=== PATIENT | male | born 1960 | race Caucasian/White ===

== ENCOUNTER 2016-07-17 18:12 | Emergency (ER) | payer OTHER ==
[~2016-07-17] VITALS: Ht 170.2 cm; Wt 70.8 kg
[~2016-07-17 18:12] MED LIST: ASPI81TA2 PO; ATOR20TA58 PO; AZIT1PAC7 PO; CARV12.52 PO; CARV6.252 PO; CILO100T PO; CLOP75TA PO; FLUT1DIS3 IH; HYDR-79 PO; HYDR-971 PO; IBUP200T77 PO; INSU100C4 SQ; INSU100V8 SQ; IPRA0.2S5 IH; IPRA3AMP23 IH; ISOS30TA17 PO; ISOS30TA4 PO; LANS30CA PO; NITR0.4T SL; PANT20TA3 PO; PROAIR HFA8.5 GM INH; RAMI5CAP PO; SIMV80TA3 PO; TIOT18CA IH; VENTOLIN HFA18 GM IH
[2016-07-17] MEDS ORDERED: GUAIFENESIN DM 600/30MG TAB.ER.12H. PO ONE (21:00)
[2016-07-17 21:15] VITALS: BP 109/62
[2016-07-17] MEDS ORDERED: GUAI-42 PO (21:26)
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
--- NOTE | 2016-07-18 08:38 | RAD ---
PA and lateral chest radiographs 07/17/2016 Clinical history: Cough and chest pain since earlier in the day. PA and lateral digital radiographs the chest were obtained. Comparison study is dated 09/29/2015. The patient is status post median sternotomy. The cardiac silhouette is normal in size. The thoracic aorta is minimally tortuous. No acute pulmonary infiltrate is seen. No pleural effusion or pneumothorax is noted. A 1 cm calcified granuloma is seen involving the right lower lobe, unchanged. Degenerative changes are seen involving the thoracic spine. Impression: No acute abnormality is seen.
[2016-07-18 10:06] LABS: NEGATIVE OBC STREP NEG; POSITIVE OBC STREP POS
== END 2016-07-17 21:40 | disposition home or self-care (01) ==
LOC: ER 18:12
DX: J02.9 Acute pharyngitis, unspecified (principal); I11.0 Hypertensive heart disease with heart failure; I50.9 Heart failure, unspecified; J44.9 Chronic obstructive pulmonary disease, unspecified; E11.9 Type 2 diabetes mellitus without complications; H40.9 Unspecified glaucoma; E78.00 Pure hypercholesterolemia, unspecified; F12.10 Cannabis abuse, uncomplicated; Z95.5 Presence of coronary angioplasty implant and graft; Z88.5 Allergy status to narcotic agent
CPT/HCPCS: 71020; 87070; 87880; 99285-25

== ENCOUNTER 2016-10-30 13:01 | Emergency (ER) | payer OTHER ==
[2016-10-30 13:01] VITALS: BP 142/89
[~2016-10-30 13:01] MED LIST changes: +ASPI-630 PO; -ASPI81TA2 PO; -AZIT1PAC7 PO; +AZIT1PAC9 PO; +GUAI-107 PO; -ISOS30TA17 PO; +ISOS30TA19 PO
[2016-10-30] MEDS ORDERED: IPRATRPIUM/ALBUTEROL 0.5/2.5MG 3 ML NEBU. NEB ONE (14:00)
[2016-10-30] MEDS ORDERED: BENZONATATE 100 MG CAPSULE. PO ONE (14:00)
[2016-10-30] MEDS ORDERED: predniSONE 20 MG TABLET PO ONE (14:00)
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
--- NOTE | 2016-10-30 14:16 | RAD ---
Chest, 2 views, 10/30/2016: History: Cough, congestion Comparison is made to a study from 07/17/2016. There has been a previous median sternotomy. The heart size and pulmonary vascularity are normal. No pulmonary infiltrate is seen. There is a calcified granuloma in the posterior lung base on the right. There is unchanged blunting of the left lateral costophrenic angle compatible with scarring. IMPRESSION: No acute cardiopulmonary abnormality is detected.
[2016-10-30] MEDS ORDERED: ALBU1.25 NEB (14:22)
[2016-10-30] MEDS ORDERED: BENZ100C PO (14:22)
[2016-10-30] MEDS ORDERED: AZIT250T PO (14:22)
[2016-10-30] MEDS ORDERED: PRED50TA PO (14:22)
[2016-10-30] MEDS ORDERED: CHLO1TB. PO (14:23)
== END 2016-10-30 14:28 | disposition home or self-care (01) ==
LOC: ER 13:01
DX: J06.9 Acute upper respiratory infection, unspecified (principal); B97.89 Other viral agents as the cause of diseases classified elsewhere; J20.9 Acute bronchitis, unspecified; F17.200 Nicotine dependence, unspecified, uncomplicated; I11.0 Hypertensive heart disease with heart failure; I50.9 Heart failure, unspecified; J44.9 Chronic obstructive pulmonary disease, unspecified; H40.9 Unspecified glaucoma; E78.00 Pure hypercholesterolemia, unspecified; E11.9 Type 2 diabetes mellitus without complications; F12.10 Cannabis abuse, uncomplicated; Z95.5 Presence of coronary angioplasty implant and graft; Z88.5 Allergy status to narcotic agent
CPT/HCPCS: 71020; 94250; 94640; 99284; J7512; J7620

== ENCOUNTER → 2017-04-01 | Outpatient (CLI) | payer OTHER | END | disposition home or self-care (01) | LOC: US 13:00 | DX: I70.201 Unspecified atherosclerosis of native arteries of extremities, right leg (principal); E11.51 Type 2 diabetes mellitus with diabetic peripheral angiopathy without gangrene | CPT/HCPCS: 93923 ==

== ENCOUNTER 2017-05-11 10:43 | Observation (INO) | payer OTHER ==
[2017-05-11 11:22] LABS: ANION GAP 8 (6-14); BLOOD UREA NITROGEN 11 mg/dL (8-26); CALCIUM 9.3 mg/dL (8.5-10.1); CARBON DIOXIDE 28 mmol/L (21-32); CHLORIDE 100 mmol/L (98-107); CREATININE 0.8 mg/dL (0.7-1.3); GFR 100.4; GLUCOSE 243 mg/dL (70-99); POTASSIUM 4.1 mmol/L (3.5-5.1); SODIUM 136 mmol/L (136-145)
[2017-05-11 11:24] LABS: HEMATOCRIT 46.4 % (39.0-53.0); MEAN CORPUSCULAR HEMOGLOBIN 32 pg (25-35); MEAN CORPUSCULAR HGB CONC 34 g/dL (31-37); MEAN CORPUSCULAR VOLUME 93 fL (79-100); PLATELET COUNT 222 x10^3/uL (140-400); RED BLOOD COUNT 5.01 x10^6/uL (4.30-5.70); RED CELL DISTRIBUTION WIDTH 13.3 % (11.5-14.5); WHITE BLOOD COUNT 8.3 x10^3/uL (4.0-11.0)
[2017-05-11 11:40] LABS: PROTHROMBIN TIME PATIENT 12.8 SEC (11.7-14.0)
[2017-05-11] MEDS ORDERED: LIDOCAINE 2% 20 ML VIAL. ×2 (13:39→15:03)
[2017-05-11] MEDS ORDERED: IODIXANOL 320 MG/ML 100 ML VIAL. (13:39)
[2017-05-11] MEDS ORDERED: fentaNYL PF VIAL 100 MCG/2 ML VIAL (14:18)
[2017-05-11] MEDS ORDERED: MIDAZOLAM HCL/PF 2 MG/2 ML VIAL. (14:19)
[2017-05-11] MEDS ORDERED: HEPARIN for IV BOLUS 10,000 UNIT/10 ML VIAL. (15:03)
[2017-05-11 15:27] LABS: ISTAT ACT 205 sec (92-181)
[2017-05-11] MEDS: LIDOCAINE 2% 20 ML VIAL. IJ (15:50)
[2017-05-11] MEDS: IODIXANOL 320 MG/ML 100 ML VIAL. IART (15:50)
[2017-05-11] MEDS: MIDAZOLAM HCL/PF 2 MG/2 ML VIAL. IV (15:51)
[2017-05-11] MEDS: fentaNYL PF VIAL 100 MCG/2 ML VIAL IV (15:51)
[2017-05-11] MEDS: HEPARIN for IV BOLUS 10,000 UNIT/10 ML VIAL. IV (15:52)
[2017-05-11 16:40] LABS: POC GLUCOSE 183 mg/dL (70-99)
[2017-05-11] MEDS ORDERED: ATROPINE 0.5 MG/5 ML DISP.SYRIN. IV (17:00)
[2017-05-11] MEDS ORDERED: NON FORMULARY ITEM (Albuterol Sulfate (Proair Hfa Inhaler) 2 PUFF) INH (17:00)
[2017-05-11] MEDS ORDERED: LIDOCAINE 2% 100 MG/5 ML SYRINGE. IV (17:00)
[2017-05-11] MEDS ORDERED: ACETAMINOPHEN 325 MG TABLET. PO (17:00)
[2017-05-11] MEDS ORDERED: 0.9 % SODIUM CHLORIDE 10 ML DISP.SYRIN. IV (17:00)
[2017-05-11] MEDS ORDERED: NITROGLYCERIN SUBLINGUAL 0.4 MG BOTTLE OF 25. SL (17:00)
[2017-05-11] MEDS ORDERED: AMIODARONE 150 MG in IV DEXTROSE 5% 100 ML IV (17:00)
[2017-05-11] MEDS ORDERED: fentaNYL PF VIAL 100 MCG/2 ML VIAL IV (17:00)
[2017-05-11] MEDS: ASPIRIN CHEWABLE 81 MG TABLET. PO (17:26)
[2017-05-11] MEDS: PANTOPRAZOLE 40 MG TABLET.DR. PO (17:30)
[2017-05-11] MEDS ORDERED: DEXTROSE 50% 25 GM / 50ML DISP.SYRIN. IV (17:30)
[2017-05-11] MEDS: CARVEDILOL 12.5 MG TABLET. PO (17:37)
[2017-05-11] MEDS: LISINOPRIL 10 MG TABLET PO (17:38)
[2017-05-11] MEDS: ISOSORBIDE MONONITRATE ER 30 MG TAB.ER.24H PO (17:38)
[2017-05-11] MEDS: CLOPIDOGREL BISULFATE 75 MG TABLET PO ×2 (17:38→18:08)
[2017-05-11] MEDS: CILOSTAZOL 50 MG TABLET. PO (17:39)
[2017-05-11] MEDS: INSULIN ASPART 300 UNITS/3 ML INSULN.PEN SQ (17:43)
[2017-05-11] MEDS: HYDROcodone/APAP 10/325 1 TAB TABLET PO (18:09)
[2017-05-11] MEDS: ALBUTEROL SULFATE 2.5 MG/3 ML NEBU. NEB (20:33)
[2017-05-11 21:03] LABS: POC GLUCOSE 217 mg/dL (70-99)
[2017-05-11] MEDS: INSULIN DETEMIR 300 UNITS/3 ML INSULN.PEN. SQ (21:18)
[2017-05-12] MEDS: INSULIN ASPART 300 UNITS/3 ML INSULN.PEN SQ (07:30)
[2017-05-12 09:13] LABS: POC GLUCOSE 118 mg/dL (70-99)
[2017-05-12] MEDS: CLOPIDOGREL BISULFATE 75 MG TABLET PO (09:20)
[2017-05-12] MEDS: ISOSORBIDE MONONITRATE ER 30 MG TAB.ER.24H PO (09:21)
[2017-05-12] MEDS: PANTOPRAZOLE 40 MG TABLET.DR. PO (09:21)
[2017-05-12] MEDS: LISINOPRIL 10 MG TABLET PO (09:22)
[2017-05-12] MEDS: ASPIRIN CHEWABLE 81 MG TABLET. PO (09:22)
[2017-05-12] MEDS: CARVEDILOL 12.5 MG TABLET. PO (09:22)
[2017-05-12] MEDS: CILOSTAZOL 50 MG TABLET. PO (10:42)
[2017-05-12] MEDS ORDERED: ATORVASTATIN CALCIUM 20 MG TABLET PO (21:00)
== END 2017-05-12 11:40 | disposition home or self-care (01) ==
LOC: CCL 10:43 → 2 SOUTH 15:03
DX: I70.213 Atherosclerosis of native arteries of extremities with intermittent claudication, bilateral legs (principal); I25.10 Atherosclerotic heart disease of native coronary artery without angina pectoris; I10 Essential (primary) hypertension; E78.5 Hyperlipidemia, unspecified; Z95.1 Presence of aortocoronary bypass graft; Z95.5 Presence of coronary angioplasty implant and graft
CPT/HCPCS: 36415; 37220; 75630; 80048; 82962; 85027; 85347; 85610; 96372; 96374; 96375; 99152; 99153; 99406; C1725; C1769; C1771; C1892; G0269; G0378; G0379; J1644; J1815; J2250; J3010; J7613

== ENCOUNTER 2018-01-30 20:31 | Emergency (ER) | payer OTHER ==
[~2018-01-30] VITALS: Ht 170.2 cm; Wt 69.4 kg
[~2018-01-30 20:31] MED LIST changes: +ALBU1.25 NEB; +AZIT250T PO; +BENZ100C PO; +CHLO1TB. PO; -GUAI-107 PO; +GUAI-108 PO; +INSU100I13 SQ; +INSU100I17 SQ; +PANT20TA2 PO; +PRED50TA PO; -RAMI5CAP PO; +RAMI5CAP50 PO; -SIMV80TA3 PO; +SIMV80TA7 PO
[2018-01-30] MEDS ORDERED: IV NORMAL SALINE 1000ML BAG 1,000 ML IV ONE (21:00)
[2018-01-30 21:06] LABS: BASO # 0.1 x10^3/uL (0.0-0.2); BASO % 1 % (0-3); EOS % 1 % (0-3); HEMATOCRIT 42.6 % (39.0-53.0); HEMOGLOBIN 14.9 g/dL (13.0-17.5); LYMPH % 13 % (24-48); MEAN CORPUSCULAR HEMOGLOBIN 32 pg (25-35); MEAN CORPUSCULAR HGB CONC 35 g/dL (31-37); MEAN CORPUSCULAR VOLUME 92 fL (79-100); MONO # 0.4 x10^3/uL (0.0-1.1); MONO % 6 % (0-9); NEUT # 5.9 x10^3uL (1.8-7.7); NEUT % 80 % (31-73); PLATELET COUNT 199 x10^3/uL (140-400); RED BLOOD COUNT 4.62 x10^6/uL (4.30-5.70); RED CELL DISTRIBUTION WIDTH 13.3 % (11.5-14.5); WHITE BLOOD COUNT 7.4 x10^3/uL (4.0-11.0)
[2018-01-30 21:18] LABS: CALCIUM 9.1 mg/dL (8.5-10.1); CREATININE 0.8 mg/dL (0.7-1.3); POTASSIUM 3.8 mmol/L (3.5-5.1)
[2018-01-30 21:23] LABS: ALBUMIN 3.6 g/dL (3.4-5.0); ALBUMIN/GLOBULIN RATIO 1.1 (1.0-1.7); TOTAL BILIRUBIN 0.5 mg/dL (0.2-1.0); TOTAL PROTEIN 6.9 g/dL (6.4-8.2)
[2018-01-30 22:00] VITALS: BP 116/64
[2018-01-30 22:02] LABS: BILIRUBIN,URINE NEGATIVE (NEG); CLARITY,URINE CLEAR; COLOR,URINE YELLOW; NITRITE,URINE NEGATIVE (NEG); PROTEIN,URINE NEGATIVE (NEG-TRACE)
[2018-01-30 22:07] LABS: AMPHETAMINE/METHAMPHETAMINE NEG (NEG); BARBITURATES NEG (NEG); BENZODIAZEPINES NEG (NEG); CANNABINOIDS POS (NEG); COCAINE NEG (NEG); METHADONE NEG (NEG); OPIATES POS (NEG); PHENCYCLIDINE NEG (NEG)
[2018-01-30 22:14] LABS: BACTERIA,URINE 0 /HPF (0-FEW); RBC,URINE 0 /HPF (0-2); SQUAMOUS EPITHELIAL CELL,UR OCC /LPF; WBC,URINE OCC /HPF (0-4)
--- NOTE | 2018-01-30 22:20 | RAD ---
Duplex sonography of the testicles and scrotum Clinical indications: Right testicle pain. FINDINGS: Duplex sonography of the scrotum and both testicles was performed including grayscale evaluation and color flow and waveform spectral analysis. The right testicle measures 3.9 cm and 2.7 cm and 2.2 cm. The left testicle measures 3.9 cm and 2.8 cm and 1.8 cm. Both testicles are homogeneous without mass. Symmetric color Doppler flow is seen within the testicles and therefore no testicular torsion or orchitis is evident. The body of the epididymis on the right side is enlarged and mildly hyperemic. This may be seen with epididymitis. Epididymis on the left side is unremarkable. No hydrocele is seen. IMPRESSION: No testicular torsion or mass. Mild right-sided epididymitis. Electronically signed by: Dre Snow MD (01/30/2018 10:17 PM) [facility]
[2018-01-30] MEDS ORDERED: DOXY100C2 PO (22:31)
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
[2018-01-30] MEDS ORDERED: cefTRIAXone IM 1 GM VIAL IM ONE (22:43)
[2018-01-30] MEDS ORDERED: IBUPROFEN 400 MG TABLET. PO ONE (22:45)
[2018-01-31] MEDS ORDERED: cefTRIAXone IV Push 1 GM VIAL. IVP SCH (21:00)
== END 2018-01-30 22:48 | disposition home or self-care (01) ==
LOC: ER 20:31
DX: N45.1 Epididymitis (principal); E78.00 Pure hypercholesterolemia, unspecified; I11.0 Hypertensive heart disease with heart failure; I50.9 Heart failure, unspecified; E11.39 Type 2 diabetes mellitus with other diabetic ophthalmic complication; H40.9 Unspecified glaucoma; H42 Glaucoma in diseases classified elsewhere; Z95.5 Presence of coronary angioplasty implant and graft; Z95.1 Presence of aortocoronary bypass graft; F17.200 Nicotine dependence, unspecified, uncomplicated; Z88.6 Allergy status to analgesic agent
CPT/HCPCS: 36415; 76870; 80053; 80307; 81001; 85025; 87491; 87591; 96365; 99285; J0690; J7030

== ENCOUNTER → 2018-09-23 | Outpatient (CLI) | payer OTHER ==
[~2018-09-23] MED LIST changes: +ALBU2.5V8 INH; +CARV12.511 PO; -CARV12.52 PO; +CARV6.2511 PO; -CARV6.252 PO; +DOXY100C2 PO; +HYDR-3164 PO; -HYDR-79 PO; -HYDR-971 PO; +HYDROCODONE-IB1 EAC3 PO; -PROAIR HFA8.5 GM INH; +SIMV80TA17 PO; -SIMV80TA7 PO
--- NOTE | 2018-09-23 11:12 | CARD ---
MR#: [id number] Date of Study: 09/23/2018 Ordering Physician: MAGDALENA STRANGE, Referring Physician: MAGDALENA STRANGE, Tech: Paulina Arellano [facility] APPROVED REPORT EXAM: Two-dimensional and M-mode echocardiogram with Doppler and color Doppler. Other Information Quality : GoodHR: 78bpm Rhythm : NSR INDICATION CAD Surgery/Intervention CABD DIMENSIONS RVDd3.2 (2.9-3.5cm)Left Atrium(2D)3.1 (1.6-4.0cm) IVSd1.0 (0.7-1.1cm)Aortic Root(2D)3.2 (2.0-3.7cm) LVDd4.9 (3.9-5.9cm)LVOT Diameter2.1 (1.8-2.4cm) PWd0.8 (0.7-1.1cm)LVDs4.0 (2.5-4.0cm) FS (%) 18.9 %SV44.5 ml Aortic Valve AoV Peak Valdemar.113.7cm/sAoV VTI25.1cm AO Peak GR.5.2mmHgLVOT Peak Valdemar.80.7cm/s AO Mean GR.3mmHgAVA (VMAX)2.35cm2 ZACHARY (VTI)2.40cm2 Mitral Valve MV E Tebtsmyi46.3cm/sMV DECEL QGOD908ep MV A Dqrfkuyi84.4cm/sE/A Ratio1.2 Pulmonary Valve PV Peak Owwkkzps47.3cm/s Tricuspid Valve TR P. Ktrnpagy333qm/sRAP XXLJBTTY9mxRd TR Peak Gr.54wvNfVAMX98ruNq LEFT VENTRICLE The left ventricle is normal size. There is normal left ventricular wall thickness. Left ventricle sy stolic function is mildly decreased. The Ejection Fraction is estimated at 45%. Mild basilar septal h ypokinesis. Transmitral Doppler flow pattern is Grade II-pseudonormal filling dynamics. RIGHT VENTRICLE The right ventricle is normal size. There is normal right ventricular wall thickness. The right ventr icular systolic function is normal. ATRIA The left atrium size is normal. The right atrium size is normal. The interatrial septum is intact wit h no evidence for an atrial septal defect or patent foramen ovale as noted on 2-D or Doppler imaging. AORTIC VALVE The aortic valve is normal in structure and function. The aortic valve is trileaflet. Doppler and Col or Flow revealed no significant aortic regurgitation. There is no significant aortic valvular stenosi s. MITRAL VALVE The mitral valve is normal in structure and function. There is no evidence of mitral valve prolapse. There is no mitral valve stenosis. Doppler and Color-flow revealed mild mitral regurgitation. TRICUSPID VALVE The tricuspid valve is normal in structure and function. Doppler and Color Flow revealed trace tricus pid regurgitation. The PA pressure was estimated at 31 mmHg. There is no tricuspid valve prolapse or vegetation. There is no tricuspid valve stenosis. PULMONIC VALVE The pulmonary valve is normal in structure and function. Doppler and Color Flow revealed trace pulmon ic valvular regurgitation. There is no pulmonic valvular stenosis. GREAT VESSELS The aortic root is normal in size. The ascending aorta is normal in size. The IVC is normal in size a nd collapses >50% with inspiration. PERICARDIAL EFFUSION There is no evidence of significant pericardial effusion. Critical Notification Critical Value: No <Conclusion> The left ventricle is normal size. Left ventricle systolic function is mildly decreased. The Ejection Fraction is estimated at 45%. Mild basilar septal hypokinesis. There is no significant aortic valvular stenosis. Doppler and Color Flow revealed no significant aortic regurgitation. Doppler and Color-flow revealed mild mitral regurgitation. Doppler and Color Flow revealed trace tricuspid regurgitation. The PA pressure was estimated at 31 mmHg. Signed by : Caio Liao MD Electronically Approved : 09/23/2018 11:11:40
--- NOTE | 2018-09-23 14:03 | RAD ---
MR#: [id number] Date of Study: 09/23/2018 Ordering Physician: MAGDALENA STRANGE, Referring Physician: MAGDALENA STRANGE, Tech: Kath Rudolph RDMS, RVT, RTR APPROVED REPORT Patient Location: OUT-PATIENT Exam Type: Ankle to Brachial Index Indications PAD Smoker; Diabetic; History of Iliac stents and Left Femoral Stent Pressures/Indices RightABI LeftABI Brachial 140mmHg.88Brachial 143mmHg.81 Ankle(PT) 115mmHgAnkle(PT) 109mmHg Ankle(DP) 126mmHgAnkle(DP) 116mmHg Findings Ankle-brachial indices are as noted above. There is mild abnormality on the right and mild to moderat e abnormality on the left. Overall no high-grade stenosis identified. Critical Notification Critical Value: No <Conclusion> Mild to moderate lower extremity arterial disease based on ABIs. Signed by : Magdalena Strange, Electronically Approved : 09/23/2018 14:03:14
--- NOTE | 2018-09-23 18:40 | RAD ---
MR#: [id number] Date of Study: 09/23/2018 Ordering Physician: MAGDALENA STRANGE, Referring Physician: MAGDALENA STRANGE, Tech: Kath Rudolph, TOMMS, RVT, RTR APPROVED REPORT Patient Location: OUT-PATIENT Indications PAD Smoker; Diabetic; History of Iliac stents and Left Femoral Stent VELOCITY AND DOPPLER WAVEFORM ANALYSIS RIGHT cm/secWaveformSeverity LEFT cm/secWaveform Severity pCFA 114.2BiphasicpCFA 115.7Biphasic Prof Fem Art. 187.2BiphasicProf Fem Art. 112.5Biphasic Fem Art Prox. 150.4BiphasicFem Art Prox. 101.5Biphasic Fem Art Mid. 170.4BiphasicFem Art Mid. 124.7Biphasic Fem Art Dist. 147.2BiphasicFem Art Dist. 84.8Biphasic Pop Art(AK) 63.0MonophasicPop Art(AK) 73.9Biphasic RIVERBOAT CAPTAIN Prox. 20.1MonophasicPTA Prox. 15.0Monophasic RIVERBOAT CAPTAIN Dist. 53.2MonophasicPTA Dist. 25.7Monophasic Per Art Prox. 57.3Per Art Prox. 39.8Monophasic REFUGIO Prox. 40.5MonophasicATA Prox. 35.4Monophasic DPA 27MonophasicDPA 29Monophasic Findings Grayscale images of the bilateral lower extremity arterial vessels reveals diffuse plaque. No focal high-grade stenosis is identified above the knee and a patent left SFA stent is noted. The d istal aspect of the left SFA stent is not well visualized. There is significantly diminished velocities in the below-knee arteries bilaterally, left greater vladimir n the right. Overall mostly monophasic waveforms are noted throughout the lower extremity arterial co urse likely due to significant adventitial calcification and loss of arterial elasticity and also due to likely diffuse moderate to severe disease involving the below-knee vessels. Critical Notification Critical Value: No <Conclusion> 1. No focal high-grade stenosis above the knee, likely diffuse severe disease involving the below-kne e vessels bilaterally Signed by : Magdalena Strange, Electronically Approved : 09/23/2018 18:40:14
== END | disposition home or self-care (01) ==
LOC: US 09:33
PROVIDERS: ATTEND Internal Medicine Cardiovascular Disease
DX: I34.0 Nonrheumatic mitral (valve) insufficiency (principal); I73.9 Peripheral vascular disease, unspecified; I25.10 Atherosclerotic heart disease of native coronary artery without angina pectoris; E11.9 Type 2 diabetes mellitus without complications; F17.200 Nicotine dependence, unspecified, uncomplicated; Z95.818 Presence of other cardiac implants and grafts
CPT/HCPCS: 93306; 93922; 93925

== ENCOUNTER 2019-01-04 14:57 | Emergency (ER) | payer MEDICAID, OTHER ==
[~2019-01-04] VITALS: Ht 170.2 cm; Wt 69.1 kg
[~2019-01-04 14:57] MED LIST changes: -NITR0.4T SL; +NITR0.4T24 SL
[2019-01-04] MEDS ORDERED: IPRATRPIUM/ALBUTEROL 0.5/2.5MG 3 ML NEBU. NEB ONE (15:30)
--- NOTE | 2019-01-04 15:46 | RAD ---
Chest radiograph 01/04/2019 3:23 PM INDICATION: Cough and shortness of breath COMPARISON: 10/30/2016 TECHNIQUE: Frontal and lateral views of the chest are provided. FINDINGS: The cardiomediastinal silhouette is within normal limits. Median sternotomy changes are present. There are no pleural effusions. Pleural thickening suspected at the left lung base, stable. There is no pulmonary vascular congestion. There is no pneumothorax. The lungs are clear. Mild interstitial prominence appears stable. Suspect pulmonary emphysematous changes. No significant osseous abnormality is identified. IMPRESSION: COPD changes without acute cardiopulmonary process. Electronically signed by: Clarissa Edwards MD (01/04/2019 3:43 PM) [facility]
[2019-01-04] MEDS ORDERED: BENZ100C PO (16:01)
[2019-01-04] MEDS ORDERED: AZIT250T PO (16:01)
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
[2019-01-04 16:10] VITALS: BP 159/74
== END 2019-01-04 16:25 | disposition home or self-care (01) ==
LOC: ER 14:57
DX: J44.1 Chronic obstructive pulmonary disease with (acute) exacerbation (principal); I11.0 Hypertensive heart disease with heart failure; I50.9 Heart failure, unspecified; E11.39 Type 2 diabetes mellitus with other diabetic ophthalmic complication; H40.9 Unspecified glaucoma; E78.00 Pure hypercholesterolemia, unspecified; F17.200 Nicotine dependence, unspecified, uncomplicated; Z95.1 Presence of aortocoronary bypass graft; Z95.5 Presence of coronary angioplasty implant and graft; Z72.0 Tobacco use; Z71.6 Tobacco abuse counseling; Z88.6 Allergy status to analgesic agent
CPT/HCPCS: 71046; 94640; 99284; J7620

== ENCOUNTER 2019-01-28 16:52 | Emergency (ER) | payer MEDICAID ==
[~2019-01-28] VITALS: Ht 170.2 cm; Wt 68.9 kg
[2019-01-28 17:00] VITALS: BP 201/91
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
[2019-01-28] MEDS ORDERED: DIPHTH,PERTUSS(ACELL),TET TOX 0.5 ML DISP.SYRIN. VAX IM ONE (17:30)
[2019-01-28] MEDS ORDERED: ONDANSETRON ODT 4 MG TAB.RAPDIS. PO ONE (17:45)
[2019-01-28] MEDS ORDERED: ONDANSETRON ODT 4 MG TAB.RAPDIS. ONE (17:45)
[2019-01-28] MEDS ORDERED: HYDROcodone/APAP 5/325MG 1 TAB TABLET PO ONE (17:45)
[2019-01-28] MEDS ORDERED: HYDROcodone/APAP 5/325MG 1 TAB TABLET ONE (17:45)
--- NOTE | 2019-01-28 17:56 | RAD ---
CT head without contrast: Reason for examination: Fell with facial contusion. Axial images were obtained through the brain. No contrast was administered. Ventricular systems are symmetric and not abnormally dilated. No midline shift is seen. There is no evidence of intracranial hemorrhage, infarct, mass or edema. No abnormalities are seen at the orbits. The paranasal sinuses are clear. No acute abnormality seen in the skull. IMPRESSION: No acute intracranial abnormality evident. CT maxillofacial without contrast: Helical images were obtained through the maxillofacial structures with no contrast administered. Reconstruction was performed in sagittal and coronal planes. There appear to be nasal bone fractures with mild angulation. The hoskins of the orbits and paranasal sinuses are intact. The zygomatic arches are intact. The mandible is intact. Temporomandibular joints are maintained. No abnormality seen in the visualized portion of the cervical spine. IMPRESSION: Nasal bone fractures with mild angulation. No other acute abnormality seen in the facial bones. Exposure: One or more of the following individualized dose reduction techniques were utilized for this examination: 1. Automated exposure control 2. Adjustment of the mA and/or kV according to patient size 3. Use of iterative reconstruction technique. Electronically signed by: Nga Grimes MD (01/28/2019 5:53 PM) [facility]
--- NOTE | 2019-01-28 18:04 | RAD ---
Left thumb 3 views: Reason for examination: Fell with pain. The single view of the left hand shows no fracture or dislocation. 2 additional views of the left thumb show no acute fracture or dislocation. The bone density is normal. No abnormal periosteal reaction is seen. There is some degenerative change at the first metacarpal phalangeal joint. IMPRESSION: Degenerative change at the first metacarpal phalangeal joint. No acute bony abnormality seen. Right shoulder 3 views: No acute fracture or dislocation is seen. There is some degenerative change at the acromioclavicular joint with some fragmentation at the distal clavicle. Remaining joint spaces are maintained. IMPRESSION: Degenerative changes at the acromion clavicular joint. No acute abnormality seen at the right shoulder. Right elbow 3 views: No fracture or dislocation is seen. The bone density is normal. No abnormal periosteal reaction is seen. Joint spaces are maintained. No joint effusion is evident. IMPRESSION: No acute bony abnormality evident at the right elbow. Electronically signed by: Nga Grimes MD (01/28/2019 6:01 PM) [facility]
[2019-01-28] MEDS ORDERED: AMOX1TAB61 PO (18:25)
[2019-01-28] MEDS ORDERED: HYDR-3164 PO (18:25)
== END 2019-01-28 18:35 | disposition home or self-care (01) ==
LOC: ER 16:52
DX: S02.2XXA Fracture of nasal bones, initial encounter for closed fracture (principal); S63.602A Unspecified sprain of left thumb, initial encounter; S40.011A Contusion of right shoulder, initial encounter; S50.01XA Contusion of right elbow, initial encounter; I11.0 Hypertensive heart disease with heart failure; I50.9 Heart failure, unspecified; J44.9 Chronic obstructive pulmonary disease, unspecified; R51 Headache; E11.39 Type 2 diabetes mellitus with other diabetic ophthalmic complication; H40.9 Unspecified glaucoma; E78.00 Pure hypercholesterolemia, unspecified; Z95.1 Presence of aortocoronary bypass graft; Z88.6 Allergy status to analgesic agent; W17.89XA Other fall from one level to another, initial encounter; Y93.89 Activity, other specified; Y92.89 Other specified places as the place of occurrence of the external cause; Y99.8 Other external cause status
CPT/HCPCS: 70450; 70486; 73030; 73080; 73140; 90471; 90715; 99284; Q0162

== ENCOUNTER 2021-02-16 14:11 | Emergency (ER) | payer MEDICAID ==
[~2021-02-16] VITALS: Ht 172.7 cm; Wt 74.0 kg
[~2021-02-16 14:11] MED LIST changes: +AMOX1TAB61 PO; -DOXY100C2 PO; +DOXY100C3 PO; -ISOS30TA4 PO; +ISOS30TA68 PO
[2021-02-16] MEDS ORDERED: IV NORMAL SALINE 1000ML BAG 1,000 ML IV SCH (14:30)
[2021-02-16 14:43] LABS: BASO # 0.1 x10^3/uL (0.0-0.2); BASO % 1 % (0-3); EOS # 0.2 x10^3/uL (0.0-0.7); EOS % 2 % (0-3); HEMATOCRIT 49.1 % (39.0-53.0); HEMOGLOBIN 16.9 g/dL (13.0-17.5); LYMPH # 1.7 x10^3/uL (1.0-4.8); LYMPH % 21 % (24-48); MEAN CORPUSCULAR HEMOGLOBIN 32 pg (25-35); MEAN CORPUSCULAR HGB CONC 34 g/dL (31-37); MEAN CORPUSCULAR VOLUME 93 fL (79-100); MONO # 0.5 x10^3/uL (0.0-1.1); MONO % 6 % (0-9); NEUT # 5.8 x10^3/uL (1.8-7.7); NEUT % 70 % (31-73); PLATELET COUNT 218 x10^3/uL (140-400); RED BLOOD COUNT 5.27 x10^6/uL (4.30-5.70); RED CELL DISTRIBUTION WIDTH 13.5 % (11.5-14.5); WHITE BLOOD COUNT 8.3 x10^3/uL (4.0-11.0)
--- NOTE | 2021-02-16 14:52 | RAD ---
Exam performed: One view chest. Indication: Reason: dizziness / Spl. Instructions: / History: Date of Service: 02/16/2021 2:41 PM Comparison: Two-view chest from 01/04/2019 and priors. Single AP upright portable view chest findings: Cardiomediastinal silhouette is within limits of normal. Previous median sternotomy. No acute infiltr ates, effusion or pneumothorax is detected. The bony structures are normal. Impression: No acute cardiopulmonary process is detected. Electronically signed by: Roseann Price MD (02/16/2021 2:49 PM) [facility]
[2021-02-16 14:58] LABS: CALCIUM 9.3 mg/dL (8.5-10.1); CREATININE 0.8 mg/dL (0.7-1.3); GFR 98.9; POTASSIUM 4.3 mmol/L (3.5-5.1)
[2021-02-16 15:03] LABS: ALBUMIN/GLOBULIN RATIO 1.1 (1.0-1.7); MAGNESIUM 2.5 mg/dL (1.8-2.4); TOTAL BILIRUBIN 0.6 mg/dL (0.2-1.0); TOTAL PROTEIN 7.6 g/dL (6.4-8.2)
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
[2021-02-16] MEDS ORDERED: CONTRAST GIVEN. MC PRN (18:00)
[2021-02-16] MEDS ORDERED: IOHEXOL 300 MG/ML 100ML VIAL. IV ONE (18:00)
--- NOTE | 2021-02-16 18:36 | RAD ---
EXAMINATION: CT head without IV contrast. INDICATION:60 years, Male, dizziness. COMPARISON: 01/28/2019 TECHNIQUE: Spiral acquisition of contiguous images from the skull base to the vertex were obtained. S agittal and coronal 2D reformatted series were provided by the technologist. Soft tissue and bone win scott algorithms were reviewed. Exposure: One or more of the following individualized dose reduction techniques were utilized for thi s examination: 1. Automated exposure control 2. Adjustment of the mA and/or kV according to patient size 3. Use of iterative reconstruction technique. FINDINGS: Neither mass, midline shift, intracranial hemorrhage, acute/subacute ischemic changes, nor extraaxial fluid collections are seen. The brain parenchyma is normal in appearance. Mild brain parenchymal exa m loss. Hypoplastic mastoid air cells. Paranasal sinuses, and middle ears are clear.The orbital contents appe ar within normal limits. IMPRESSION: No acute intracranial abnormality. Electronically signed by: Doris Grace MD (02/16/2021 6:34 PM) [facility]
[2021-02-16 19:25] LABS: BARBITURATES NEG (NEG); BENZODIAZEPINES NEG (NEG); CANNABINOIDS POS (NEG); COCAINE NEG (NEG); METHADONE NEG (NEG); OPIATES NEG (NEG); PHENCYCLIDINE NEG (NEG)
[2021-02-16 19:39] LABS: AMPHETAMINE/METHAMPHETAMINE NEG (NEG)
[2021-02-16] MEDS ORDERED: HYDROcodone/APAP 7.5/325MG 1 TAB TABLET PO ONE (19:45)
--- NOTE | 2021-02-16 20:32 | RAD ---
EXAMINATION: CTA HEAD AND NECK W/WO CONTRAST INDICATION:60 years, Male, dizziness, evaluate for stenosis. TECHNIQUE: After bolus of intravenous contrast, volumetric CT data acquisition was acquired of the he ad and neck. Multiplanar reconstruction images to include MIP and 3-D reconstruction images are submi tted. Exposure: One or more of the following individualized dose reduction techniques were utilized for thi s examination: 1. Automated exposure control 2. Adjustment of the mA and/or kV according to patient size 3. Use of iterative reconstruction technique. COMPARISON: None FINDINGS: Any determination of stenosis is based on NASCET criteria. Head CTA: ICA: Soft and calcific atherosclerotic disease in the petrous, cavernous and supraclinoid segments of bilateral internal carotid artery, causing multifocal moderate to high-grade up to 90 % stenosis. MCA: No stenosis, occlusion or aneurysm. [place]: No stenosis, occlusion or aneurysm. 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 Basilar artery: No stenosis, occlusion or aneurysm. Distal vertebral arteries: No stenosis, occlusion or aneurysm. CT angiogram neck: Aortic arch: Patent. Common carotid arteries: Soft and calcific atherosclerotic disease without significant luminal stenos is. Internal carotid arteries: Soft and calcific atherosclerotic disease in the proximal left ICA without significant stenosis. External carotid arteries: Occluded left ECA with reconstitution distally via collaterals. Right ICA is patent Vertebral arteries: High-grade stenosis at the left vertebral artery origin. Right vertebral artery i s patent.. Imaged lung apices demonstrates moderate emphysema. Soft tissues appear normal. Bones: No pathologic osseous lesions. IMPRESSION: 1. High-grade stenosis at the left vertebral artery origin. 2. Multifocal moderate to high-grade stenosis of the petrous, cavernous and supraclinoid segments of the bilateral internal carotid arteries. 3. Occluded left ECA origin with reconstitution distally via collaterals. Electronically signed by: Doris Grace MD (02/16/2021 8:30 PM) [facility]
[2021-02-16] MEDS ORDERED: ONDA4TAB7 PO (21:41)
[2021-02-16 22:00] VITALS: BP 178/83
--- NOTE | 2021-02-17 01:42 | EKG ---
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
== END 2021-02-16 22:21 | disposition left against medical advice (07) ==
LOC: ER 14:11
DX: R42 Dizziness and giddiness (principal); R11.2 Nausea with vomiting, unspecified; I25.10 Atherosclerotic heart disease of native coronary artery without angina pectoris; I11.0 Hypertensive heart disease with heart failure; I50.9 Heart failure, unspecified; I73.9 Peripheral vascular disease, unspecified; I65.09 Occlusion and stenosis of unspecified vertebral artery; E78.00 Pure hypercholesterolemia, unspecified; E11.39 Type 2 diabetes mellitus with other diabetic ophthalmic complication; H40.9 Unspecified glaucoma; J44.9 Chronic obstructive pulmonary disease, unspecified; F17.200 Nicotine dependence, unspecified, uncomplicated
CPT/HCPCS: 36415; 70450; 70496; 70498; 71045; 80053; 80307; 83735; 83880; 84484; 85025; 93005; 96360; 99285; J7030; Q9967

== ENCOUNTER 2021-02-19 10:26 | Inpatient (IN) | payer MEDICAID ==
[~2021-02-19] VITALS: Ht 165.1 cm; Wt 65.7 kg
[~2021-02-19 10:26] MED LIST changes: +ONDA4TAB7 PO
[2021-02-19] MEDS ORDERED: IV NORMAL SALINE 1000ML BAG 1,000 ML IV SCH (10:45)
[2021-02-19 11:08] LABS: BILIRUBIN,URINE NEGATIVE (NEG); CLARITY,URINE CLEAR; COLOR,URINE YELLOW; NITRITE,URINE NEGATIVE (NEG); PH,URINE 6.5 (<5.0-8.0); PROTEIN,URINE NEGATIVE (NEG-TRACE)
[2021-02-19 11:09] LABS: BARBITURATES NEG (NEG); BENZODIAZEPINES NEG (NEG); CANNABINOIDS POS (NEG); COCAINE NEG (NEG); METHADONE NEG (NEG); OPIATES NEG (NEG); PHENCYCLIDINE NEG (NEG)
[2021-02-19 11:10] LABS: AMPHETAMINE/METHAMPHETAMINE NEG (NEG)
[2021-02-19] MEDS ORDERED: METOCLOPRAMIDE HCL 10 MG/2 ML VIAL. IVP ONE (11:15)
[2021-02-19] MEDS ORDERED: FAMOTIDINE 20 MG/2 ML VIAL IVP ONE (11:15)
[2021-02-19 11:18] LABS: AMORPHOUS SEDIMENT,UR PRESENT /HPF; BACTERIA,URINE 0 /HPF (0-FEW); RBC,URINE 0 /HPF (0-2); WBC,URINE 0 /HPF (0-4)
[2021-02-19] MEDS ORDERED: IV NORMAL SALINE 1000ML BAG 1,000 ML IV ONE (11:30)
[2021-02-19 11:31] LABS: BASO # 0.1 x10^3/uL (0.0-0.2); BASO % 1 % (0-3); EOS # 0.1 x10^3/uL (0.0-0.7); EOS % 2 % (0-3); HEMATOCRIT 48.4 % (39.0-53.0); HEMOGLOBIN 16.6 g/dL (13.0-17.5); LYMPH # 1.4 x10^3/uL (1.0-4.8); LYMPH % 16 % (24-48); MEAN CORPUSCULAR HEMOGLOBIN 32 pg (25-35); MEAN CORPUSCULAR HGB CONC 34 g/dL (31-37); MEAN CORPUSCULAR VOLUME 92 fL (79-100); MONO # 0.6 x10^3/uL (0.0-1.1); MONO % 7 % (0-9); NEUT # 6.6 x10^3/uL (1.8-7.7); NEUT % 75 % (31-73); PLATELET COUNT 225 x10^3/uL (140-400); RED BLOOD COUNT 5.24 x10^6/uL (4.30-5.70); RED CELL DISTRIBUTION WIDTH 13.2 % (11.5-14.5); WHITE BLOOD COUNT 8.8 x10^3/uL (4.0-11.0)
[2021-02-19 11:39] LABS: CALCIUM 9.3 mg/dL (8.5-10.1); CREATININE 0.8 mg/dL (0.7-1.3); GFR 98.9; POTASSIUM 4.1 mmol/L (3.5-5.1)
--- NOTE | 2021-02-19 11:43 | RAD ---
XR CHEST 1V 02/19/2021 10:48 AM INDICATION: Nausea and vomiting COMPARISON: 02/16/2021 TECHNIQUE: Portable frontal view of the chest is provided. FINDINGS: The cardiomediastinal silhouette is within normal limits. Lungs are clear. Median sternotomy changes are present. There are no significant pleural effusions. There is no pulmonary vascular congestion. No pneumothora x. No suspicious osseous abnormality. IMPRESSION: There is no acute cardiopulmonary process. Electronically signed by: Clarissa Edwards MD (02/19/2021 11:40 AM) [id number]
[2021-02-19 11:45] LABS: ALBUMIN 4.2 g/dL (3.4-5.0); ALBUMIN/GLOBULIN RATIO 1.4 (1.0-1.7); MAGNESIUM 2.2 mg/dL (1.8-2.4); TOTAL BILIRUBIN 0.6 mg/dL (0.2-1.0); TOTAL PROTEIN 7.3 g/dL (6.4-8.2)
--- NOTE | 2021-02-19 12:00 | RAD ---
EXAM: CT HEAD WITHOUT CONTRAST. HISTORY: Nausea, vomiting, dizziness, fall. TECHNIQUE: Computed tomography of the head was performed without intravenous contrast. One or more of the following individualized dose reduction techniques were utilized for this examination: 1. Automated exposure control. 2. Adjustment of the mA and/or kV according to patient size. 3. Use of iterative reconstruction technique. COMPARISON: 02/16/2021. FINDINGS: There is no intracranial hemorrhage. There is a new region of hypoattenuation medially with in the left cerebellar hemisphere consistent with a subacute infarct. There is no significant mass ef fect. The ventricles are normal in size and position. The visualized paranasal sinuses appear clear. The orbits are unremarkable. There is a small amount o f fluid bilaterally in the mastoid air cells. The calvarium reveals no suspicious lesions. There are atherosclerotic calcifications of the internal carotid and vertebral arteries. IMPRESSION: 1. Subacute infarct in the left cerebellar hemisphere. These findings were called to Dr. Ortiz by Deny Mccarty on 02/19/2021 at 11:57 AM. Electronically signed by: Tyson Mccarty MD (02/19/2021 11:57 AM) [id number]
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
[2021-02-19 12:38] LABS: PROTHROMBIN TIME PATIENT 13.2 SEC (11.7-14.0)
[2021-02-19] MEDS ORDERED: ACETAMINOPHEN 325 MG TABLET. PO PRN ×2 (13:00→18:30)
[2021-02-19] MEDS ORDERED: ASPIRIN RECTAL 300 MG SUPP. PR PRN (13:00)
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
[2021-02-19 13:22] LABS: CHOLESTEROL/HDL RATIO 3.4
[2021-02-19 14:00] VITALS: BP 188/80
[2021-02-19] MEDS ORDERED: FLU VACC QUAD 21-22 (6MOS+) PF 0.5 ML SYRINGE. VAX IM ONE (14:30)
--- NOTE | 2021-02-19 16:21 | RAD ---
EXAM: Brain MRI without contrast. HISTORY: Cerebellar stroke. TECHNIQUE: Multiplanar, multisequence magnetic resonance imaging of the brain was performed without c ontrast. COMPARISON: CT obtained on the same date. FINDINGS: There is restricted diffusion within the left cerebellum due to acute infarction. There is a chronic lacunar infarct within the right caudate nucleus. There is no mass effect or midline shift. There is no hydrocephalus. There is no hemorrhage. There is a chronic left lamina papyracea fracture. There is a small amount of mastoid fluid. There ar e normal flow voids within the cerebral vessels. There is no suspicious calvarial lesion. IMPRESSION: 1. Acute left cerebellar infarct. This was reported on the CT performed the same date. 2. Chronic infarct within the right caudate nucleus. Electronically signed by: Sue Zapata MD (02/19/2021 4:19 PM) [id number]
[2021-02-19] MEDS ORDERED: hydrALAZINE 20 MG/ML VIAL. IVP PRN (18:30)
[2021-02-19] MEDS ORDERED: ONDANSETRON PF 4 MG/2 ML VIAL. IVP PRN (18:30)
[2021-02-19] MEDS ORDERED: ALBUTEROL SULFATE 2.5 MG/3 ML NEBU. INH PRN (18:30)
[2021-02-19] MEDS ORDERED: DEXTROSE 50% 25 GM / 50ML DISP.SYRIN. IV PRN (18:30)
--- NOTE | 2021-02-19 18:46 | EKG ---
[facility] [address] [place] [address] Test Date: 2021-02-19 Test Time: 11:02:35 Pat Name: CAIO PULIDO Department: Room: [facility] Gender: M Comptroller: : 1960 Requested By: ELIGIO GÓMEZ Order Number: [id number] Reading MD: Caio Liao Measurements Intervals [place] Rate: 67 P: 90 SC: 136 QRS: 82 QRSD: 102 T: 41 QT: 380 QTc: 404 Interpretive Statements SINUS RHYTHM QRS(T) CONTOUR ABNORMALITY CONSISTENT WITH ANTEROSEPTAL INFARCT AGE UNDETERMINED Electronically Signed On 02-24-2021 10:51:08 FACULTY ADMINISTRATOR by Caio Liao
[2021-02-19 19:40] VITALS: BP 137/64
[2021-02-19] MEDS: IPRATRPIUM/ALBUTEROL 0.5/2.5MG 3 ML NEBU. NEB SCH (20:00)
[2021-02-19] MEDS: BUDESONIDE 0.5 MG/2 ML NEBU. NEB SCH (20:00)
[2021-02-19] MEDS: CARVEDILOL 12.5 MG TABLET. PO SCH (20:55)
[2021-02-19] MEDS ORDERED: ATORVASTATIN CALCIUM 40 MG TABLET. PO SCH (21:00)
[2021-02-19] MEDS ORDERED: INSULIN GLARGINE SYRINGE. SQ SCH (21:00)
[2021-02-19 22:50] VITALS: BP 159/73
[2021-02-20 03:05] VITALS: BP 139/66
[2021-02-20 06:21] LABS: CALCIUM 8.9 mg/dL (8.5-10.1); CREATININE 0.6 mg/dL (0.7-1.3); GFR 137.9; POTASSIUM 3.3 mmol/L (3.5-5.1)
[2021-02-20] MEDS: BUDESONIDE 0.5 MG/2 ML NEBU. NEB SCH (07:14)
[2021-02-20] MEDS: IPRATRPIUM/ALBUTEROL 0.5/2.5MG 3 ML NEBU. NEB SCH ×3 (07:14→15:26)
[2021-02-20 07:26] VITALS: BP 132/62
[2021-02-20] MEDS ORDERED: PANTOPRAZOLE 40 MG TABLET.DR. PO SCH (07:30)
[2021-02-20] MEDS ORDERED: CLOPIDOGREL BISULFATE 75 MG TABLET PO SCH (08:00)
[2021-02-20] MEDS: INSULIN LISPRO 300 UNITS/3 ML VIAL. SQ SCH ×4 (08:00→12:00)
[2021-02-20] MEDS ORDERED: ASPIRIN ENTERIC COATED 325 MG TABLET.DR. PO SCH (08:00)
[2021-02-20] MEDS: CARVEDILOL 12.5 MG TABLET. PO SCH (08:36)
[2021-02-20] MEDS ORDERED: LISINOPRIL 10 MG TABLET PO SCH (09:00)
[2021-02-20] MEDS ORDERED: ENOXAPARIN 40 MG/0.4 ML SYRINGE. SQ SCH (09:00)
[2021-02-20] MEDS ORDERED: ISOSORBIDE MONONITRATE ER 30 MG TAB.ER.24H PO SCH (09:00)
--- NOTE | 2021-02-20 09:40 | PDOC ---
[employer] PROGRESS NOTE Date of Service DOS: DATE: 02/20/21 TIME: 09:32 Chief Complaint Chief Complaint Cerebellar infarct Tobacco abuse History of CAD with bypass surgery Vertigo PUD COPD Hypertension Hyperlipidemia Diabetes Neuropathy History of Present Illness History of Present Illness 02/20/2021 Patient seen and examined Discussed with RN Chart reviewed He is resting with no apparent distress Vitals/I&O Vitals/I&O: Vital Signs Date Time Temp Pulse Resp B/P (MAP) Pulse Ox O2 Delivery O2 Flow Rate FiO2 02/20/21 08:36 70 132/62 02/20/21 07:26 97.6 18 97 Room Air 97.6 I & O 02/19/21 02/19/21 02/20/21 15:00 23:00 07:00 Intake Total 200 ml 0 ml Balance 200 ml 0 ml Physical Exam General: Alert, Oriented X3, Cooperative, mild distress Abdomen: Normal bowel sounds, Soft, No tenderness, No hepatosplenomegaly, No masses Extremities: No clubbing, No cyanosis, No edema, Normal pulses, No tenderness/swelling Skin: No rashes, No breakdown, No significant lesion Labs Labs: Laboratory Tests Test 02/19/21 10:42 02/19/21 10:55 02/19/21 11:15 02/19/21 14:00 Vitamin B12 Level 929 pg/mL (247-911) Thyroid Stimulating Hormone (TSH) 1.134 uIU/mL (0.358-3.74) Urine Collection Type Void Urine Color Yellow Urine Clarity Clear Urine pH 6.5 (<5.0-8.0) Urine Specific [place] >=1.030 (1.000-1.030) Urine Protein Negative mg/dL (NEG-TRACE) Urine Glucose (UA) >=1000 mg/dL (NEG) Urine Ketones (Stick) Negative mg/dL (NEG) Urine Blood Negative (NEG) Urine Nitrite Negative (NEG) Urine Bilirubin Negative (NEG) Urine Urobilinogen Dipstick 1.0 mg/dL (0.2 mg/dL) Urine Leukocyte Esterase Negative (NEG) Urine RBC 0 /HPF (0-2) Urine WBC 0 /HPF (0-4) Urine Squamous Epithelial Cells Occ /LPF Urine Amorphous Sediment Present /HPF Urine Bacteria 0 /HPF (0-FEW) Urine Opiates Screen Neg (NEG) Urine Methadone Screen Neg (NEG) Urine Barbiturates Neg (NEG) Urine Phencyclidine Screen Neg (NEG) Urine Amphetamine/Methamphetamine Neg (NEG) Urine Benzodiazepines Screen Neg (NEG) Urine Cocaine Screen Neg (NEG) Urine Cannabinoids Screen Pos (NEG) Urine Ethyl Alcohol Neg (NEG) White Blood Count 8.8 x10^3/uL (4.0-11.0) Red Blood Count 5.24 x10^6/uL (4.30-5.70) Hemoglobin 16.6 g/dL (13.0-17.5) Hematocrit 48.4 % (39.0-53.0) Mean Corpuscular Volume 92 fL (79-100) Mean Corpuscular Hemoglobin 32 pg (25-35) Mean Corpuscular Hemoglobin Concent 34 g/dL (31-37) Red Cell Distribution Width 13.2 % (11.5-14.5) Platelet Count 225 x10^3/uL (140-400) Neutrophils (%) (Auto) 75 % (31-73) Lymphocytes (%) (Auto) 16 % (24-48) Monocytes (%) (Auto) 7 % (0-9) Eosinophils (%) (Auto) 2 % (0-3) Basophils (%) (Auto) 1 % (0-3) Neutrophils # (Auto) 6.6 x10^3/uL (1.8-7.7) Lymphocytes # (Auto) 1.4 x10^3/uL (1.0-4.8) Monocytes # (Auto) 0.6 x10^3/uL (0.0-1.1) Eosinophils # (Auto) 0.1 x10^3/uL (0.0-0.7) Basophils # (Auto) 0.1 x10^3/uL (0.0-0.2) Prothrombin Time 13.2 SEC (11.7-14.0) Prothromb Time International Ratio 1.0 (0.8-1.1) Activated Partial Thromboplast Time 26 SEC (24-38) Sodium Level 137 mmol/L (136-145) Potassium Level 4.1 mmol/L (3.5-5.1) Chloride Level 99 mmol/L (98-107) Carbon Dioxide Level 30 mmol/L (21-32) Anion Gap 8 (6-14) Blood Urea Nitrogen 10 mg/dL (8-26) Creatinine 0.8 mg/dL (0.7-1.3) Estimated GFR (Cockcroft-Gault) 98.9 BUN/Creatinine Ratio 13 (6-20) Glucose Level 239 mg/dL (70-99) Hemoglobin A1c 10.0 % (4.8-5.6) Calcium Level 9.3 mg/dL (8.5-10.1) Magnesium Level 2.2 mg/dL (1.8-2.4) Total Bilirubin 0.6 mg/dL (0.2-1.0) Aspartate Amino Transf (AST/SGOT) 7 U/L (15-37) Alanine Aminotransferase (ALT/SGPT) 17 U/L (16-63) Alkaline Phosphatase 98 U/L (46-116) Troponin I High Sensitivity 6 ng/L (4-75) 7 ng/L (4-75) DO-Mbe-R-Type Natriuretic Peptide 81 pg/mL (0-124) Total Protein 7.3 g/dL (6.4-8.2) Albumin 4.2 g/dL (3.4-5.0) Albumin/Globulin Ratio 1.4 (1.0-1.7) Triglycerides Level 61 mg/dL (0-150) Cholesterol Level 171 mg/dL (0-200) LDL Cholesterol, Calculated 109 mg/dL (0-100) VLDL Cholesterol, Calculated 12 mg/dL (0-40) Non-HDL Cholesterol Calculated 121 mg/dL (0-129) HDL Cholesterol 50 mg/dL (40-60) Cholesterol/HDL Ratio 3.4 Lipase 61 U/L (73-393) Test 02/19/21 16:38 02/19/21 16:44 02/19/21 20:53 02/20/21 05:00 Troponin I High Sensitivity 7 ng/L (4-75) Glucose (Fingerstick) 198 mg/dL (70-99) 231 mg/dL (70-99) Sodium Level 138 mmol/L (136-145) Potassium Level 3.3 mmol/L (3.5-5.1) Chloride Level 101 mmol/L (98-107) Carbon Dioxide Level 28 mmol/L (21-32) Anion Gap 9 (6-14) Blood Urea Nitrogen 11 mg/dL (8-26) Creatinine 0.6 mg/dL (0.7-1.3) Estimated GFR (Cockcroft-Gault) 137.9 Glucose Level 150 mg/dL (70-99) Calcium Level 8.9 mg/dL (8.5-10.1) Assessment and Plan Assessmemt and Plan Problems Medical Problems: (1) Stroke due to stenosis of left vertebral artery Status: Acute Cerebellar infarct Tobacco abuse History of CAD with bypass surgery Vertigo PUD COPD Hypertension Hyperlipidemia Diabetes Neuropathy Plan: Cardiac monitoring Aspirin Plavix and Lipitor PT/OT Smoking cessation Continue home med Appreciate neuro input Comment Review of Relevant I have reviewed the following items shirley (where applicable) has been applied. Medications: Current Medications Medications (Trade) Dose Ordered Sig/Ofe Route PRN Reason Start Time Stop Time Status Last Admin Dose Admin Famotidine (Pepcid Vial) 20 mg 1X ONCE IVP 02/19/21 11:15 02/19/21 11:16 DC 02/19/21 11:27 Metoclopramide HCl (Reglan Vial) 10 mg 1X ONCE IVP 02/19/21 11:15 02/19/21 11:16 DC 02/19/21 11:27 Sodium Chloride 1,000 ml @ 1,000 mls/hr 1X ONCE IV 02/19/21 11:30 02/19/21 12:29 DC 02/19/21 11:28 Atorvastatin Calcium (Lipitor) 80 mg QHS PO 02/19/21 21:00 02/19/21 20:55 Aspirin (Ecotrin) 325 mg DAILYWBKFT PO 02/20/21 08:00 02/20/21 08:35 Clopidogrel Bisulfate (Plavix) 75 mg DAILYWBKFT PO 02/20/21 08:00 02/20/21 08:35 Enoxaparin Sodium (Lovenox 40mg Syringe) 40 mg Q24H SQ 02/20/21 09:00 02/20/21 08:36 Carvedilol (Coreg) 12.5 mg BIDWMEALS PO 02/19/21 19:00 02/20/21 08:36 Isosorbide Mononitrate (Imdur) 30 mg DAILY PO 02/20/21 09:00 02/20/21 08:35 Insulin Human Lispro (HumaLOG) 10 units TIDWMEALS SQ 02/20/21 08:00 02/20/21 08:40 Insulin Glargine (Lantus Syringe) 40 unit QHS SQ 02/19/21 21:00 02/19/21 21:00 Pantoprazole Sodium (Protonix) 40 mg DAILYAC PO 02/20/21 07:30 02/20/21 08:34 Lisinopril (Prinivil) 10 mg DAILY PO 02/20/21 09:00 02/20/21 08:35 Budesonide (Pulmicort) 0.5 mg RTBID NEB 02/19/21 20:00 02/20/21 07:14 Albuterol/ Ipratropium (Duoneb) 3 ml RTQID NEB 02/19/21 20:00 02/20/21 07:14 Justifications for Admission Other Justification WALDO GIBSON III DO Feb 20, 2021 09:40
[2021-02-20 10:32] VITALS: BP 129/63
--- NOTE | 2021-02-20 12:08 | NUR ---
holding 10unit meal dose insulin due to patient not able to tolerate meal well and BS is 88
[2021-02-20] MEDS ORDERED: POTASSIUM CHLORIDE 20 MEQ TABLET.ER. PO ONE (14:00)
[2021-02-20 14:13] VITALS: BP 123/58
--- NOTE | 2021-02-20 14:25 | PDOC ---
PROGRESS NOTES Date of Service DATE: 02/20/21 TIME: 14:16 Assessment Problems Medical Problems: (1) Stroke due to stenosis of left vertebral artery-improving exam today as he no longer has dysmetria in the left arm and has a mild amount of ataxia with left leg [id number]. There is no loss of strength, sensation or change in cognition that is apparent. He is walking in a stable fashion with a walker. 2. Diabetes-need tight control to reduce risk of stroke. The hemoglobin A1c was elevated at 10. 3. Tobacco abuse which is a risk for stroke. 4. Hyperlipidemia on atorvastatin 20 mg daily with an LDL at 104 5. Coronary artery disease status post coronary artery bypass graft Status: Acute Plan 1. He needs to discontinue smoking. 2. The atorvastatin has been increased to 80 mg. The goal LDL will be less than 70. 3. The diabetes needs much tighter control with a goal hemoglobin A1c around 6 if possible 4. He seems to be improving rapidly. If he continues to stabilize he may not require inpatient rehabilitation. The physical therapist did recommend a walker. Subjective I am feeling pretty good. It took me about a month and a half to recover from my first stroke. How long will it take me to recover from this one? Objective Vital Signs Date Time Temp Pulse Resp B/P (MAP) Pulse Ox O2 Delivery O2 Flow Rate FiO2 02/20/21 14:13 97.8 74 18 123/58 (79) 97 Room Air 97.8 Intake and Output 02/20/21 07:00 Intake Total 200 ml Balance 200 ml Intake Oral 200 ml PHYSICAL EXAM He was alert, awake and cooperative. He was lying in his bed and was able to easily get into a sitting position with his legs hanging over the side of the bed. His speech was fluent and clear. He was well oriented. He did not complain of pain. Examination of the cranial nerves revealed visual [place] were full to confrontation. Extraocular movements were intact. The eyes were conju gate. Pursuit movements were smooth and saccadic eye movements were without dysmetria. Pupils were 3 mm and reacted. Funduscopic exam did not reveal papilledema. Facial sensation was intact bilaterally. The muscles of mastication and facial expression were powerful symmetrically. Hearing was intact to finger rub. The palate arched symmetrically and the tongue was midline. I did not see any nystagmus. Muscle bulk and tone was normal. I did not detect rebound. There was no asterixis. Power was full and symmetric in the upper and lower extremities. Reflexes were 2/4 in the upper extremities and knees diminished at the ankles. Coordination testing with [id number], fine motor and rapid alternating movements did not reveal ataxia. [id number] had a slight amount of ataxia with the left leg. Sensory examination was intact to pain, light touch, proprioception, graphesthesia, cold thermal and vibration. There was no extinction to double simultaneous stimulation. Gait was normal base and steady with the use of his walker. He could heel and toe walk. Romberg stance was negative. Auscultation of the carotid arteries did not reveal a bruit. Heart rhythm was regular without a murmur. Review of Relevant I have reviewed the following items shirley (where applicable) has been applied. Labs Laboratory Tests Test 02/19/21 10:42 02/19/21 10:55 02/19/21 11:15 02/19/21 14:00 Vitamin B12 Level 929 pg/mL (247-911) Thyroid Stimulating Hormone (TSH) 1.134 uIU/mL (0.358-3.74) Urine Collection Type Void Urine Color Yellow Urine Clarity Clear Urine pH 6.5 (<5.0-8.0) Urine Specific [place] >=1.030 (1.000-1.030) Urine Protein Negative mg/dL (NEG-TRACE) Urine Glucose (UA) >=1000 mg/dL (NEG) Urine Ketones (Stick) Negative mg/dL (NEG) Urine Blood Negative (NEG) Urine Nitrite Negative (NEG) Urine Bilirubin Negative (NEG) Urine Urobilinogen Dipstick 1.0 mg/dL (0.2 mg/dL) Urine Leukocyte Esterase Negative (NEG) Urine RBC 0 /HPF (0-2) Urine WBC 0 /HPF (0-4) Urine Squamous Epithelial Cells Occ /LPF Urine Amorphous Sediment Present /HPF Urine Bacteria 0 /HPF (0-FEW) Urine Opiates Screen Neg (NEG) Urine Methadone Screen Neg (NEG) Urine Barbiturates Neg (NEG) Urine Phencyclidine Screen Neg (NEG) Urine Amphetamine/Methamphetamine Neg (NEG) Urine Benzodiazepines Screen Neg (NEG) Urine Cocaine Screen Neg (NEG) Urine Cannabinoids Screen Pos (NEG) Urine Ethyl Alcohol Neg (NEG) White Blood Count 8.8 x10^3/uL (4.0-11.0) Red Blood Count 5.24 x10^6/uL (4.30-5.70) Hemoglobin 16.6 g/dL (13.0-17.5) Hematocrit 48.4 % (39.0-53.0) Mean Corpuscular Volume 92 fL (79-100) Mean Corpuscular Hemoglobin 32 pg (25-35) Mean Corpuscular Hemoglobin Concent 34 g/dL (31-37) Red Cell Distribution Width 13.2 % (11.5-14.5) Platelet Count 225 x10^3/uL (140-400) Neutrophils (%) (Auto) 75 % (31-73) Lymphocytes (%) (Auto) 16 % (24-48) Monocytes (%) (Auto) 7 % (0-9) Eosinophils (%) (Auto) 2 % (0-3) Basophils (%) (Auto) 1 % (0-3) Neutrophils # (Auto) 6.6 x10^3/uL (1.8-7.7) Lymphocytes # (Auto) 1.4 x10^3/uL (1.0-4.8) Monocytes # (Auto) 0.6 x10^3/uL (0.0-1.1) Eosinophils # (Auto) 0.1 x10^3/uL (0.0-0.7) Basophils # (Auto) 0.1 x10^3/uL (0.0-0.2) Prothrombin Time 13.2 SEC (11.7-14.0) Prothromb Time International Ratio 1.0 (0.8-1.1) Activated Partial Thromboplast Time 26 SEC (24-38) Sodium Level 137 mmol/L (136-145) Potassium Level 4.1 mmol/L (3.5-5.1) Chloride Level 99 mmol/L (98-107) Carbon Dioxide Level 30 mmol/L (21-32) Anion Gap 8 (6-14) Blood Urea Nitrogen 10 mg/dL (8-26) Creatinine 0.8 mg/dL (0.7-1.3) Estimated GFR (Cockcroft-Gault) 98.9 BUN/Creatinine Ratio 13 (6-20) Glucose Level 239 mg/dL (70-99) Hemoglobin A1c 10.0 % (4.8-5.6) Calcium Level 9.3 mg/dL (8.5-10.1) Magnesium Level 2.2 mg/dL (1.8-2.4) Total Bilirubin 0.6 mg/dL (0.2-1.0) Aspartate Amino Transf (AST/SGOT) 7 U/L (15-37) Alanine Aminotransferase (ALT/SGPT) 17 U/L (16-63) Alkaline Phosphatase 98 U/L (46-116) Troponin I High Sensitivity 6 ng/L (4-75) 7 ng/L (4-75) IH-Wut-J-Type Natriuretic Peptide 81 pg/mL (0-124) Total Protein 7.3 g/dL (6.4-8.2) Albumin 4.2 g/dL (3.4-5.0) Albumin/Globulin Ratio 1.4 (1.0-1.7) Triglycerides Level 61 mg/dL (0-150) Cholesterol Level 171 mg/dL (0-200) LDL Cholesterol, Calculated 109 mg/dL (0-100) VLDL Cholesterol, Calculated 12 mg/dL (0-40) Non-HDL Cholesterol Calculated 121 mg/dL (0-129) HDL Cholesterol 50 mg/dL (40-60) Cholesterol/HDL Ratio 3.4 Lipase 61 U/L (73-393) Test 02/19/21 16:38 02/19/21 16:44 02/19/21 20:53 02/20/21 05:00 Troponin I High Sensitivity 7 ng/L (4-75) Glucose (Fingerstick) 198 mg/dL (70-99) 231 mg/dL (70-99) Sodium Level 138 mmol/L (136-145) Potassium Level 3.3 mmol/L (3.5-5.1) Chloride Level 101 mmol/L (98-107) Carbon Dioxide Level 28 mmol/L (21-32) Anion Gap 9 (6-14) Blood Urea Nitrogen 11 mg/dL (8-26) Creatinine 0.6 mg/dL (0.7-1.3) Estimated GFR (Cockcroft-Gault) 137.9 Glucose Level 150 mg/dL (70-99) Calcium Level 8.9 mg/dL (8.5-10.1) Test 02/20/21 10:52 Glucose (Fingerstick) 88 mg/dL (70-99) Laboratory Tests Test 02/19/21 16:38 02/19/21 16:44 02/19/21 20:53 02/20/21 05:00 Troponin I High Sensitivity 7 ng/L (4-75) Glucose (Fingerstick) 198 mg/dL (70-99) 231 mg/dL (70-99) Sodium Level 138 mmol/L (136-145) Potassium Level 3.3 mmol/L (3.5-5.1) Chloride Level 101 mmol/L (98-107) Carbon Dioxide Level 28 mmol/L (21-32) Anion Gap 9 (6-14) Blood Urea Nitrogen 11 mg/dL (8-26) Creatinine 0.6 mg/dL (0.7-1.3) Estimated GFR (Cockcroft-Gault) 137.9 Glucose Level 150 mg/dL (70-99) Calcium Level 8.9 mg/dL (8.5-10.1) Test 02/20/21 10:52 Glucose (Fingerstick) 88 mg/dL (70-99) Medications Current Medications Sodium Chloride 1,000 ml @ 1,000 mls/hr Q1H IV ; Start 02/19/21 at 10:45; Stop 02/19/21 at 11:44; Status Cancel Famotidine (Pepcid Vial) 20 mg 1X ONCE IVP Last administered on 02/19/21at 11:27; Start 02/19/21 at 11:15; Stop 02/19/21 at 11:16; Status DC Metoclopramide HCl (Reglan Vial) 10 mg 1X ONCE IVP Last administered on 02/19/21at 11:27; Start 02/19/21 at 11:15; Stop 02/19/21 at 11:16; Status DC Sodium Chloride 1,000 ml @ 1,000 mls/hr 1X ONCE IV Last administered on 02/19/21at 11:28; Start 02/19/21 at 11:30; Stop 02/19/21 at 12:29; Status DC Atorvastatin Calcium (Lipitor) 80 mg QHS PO Last administered on 02/19/21at 20:55; Start 02/19/21 at 21:00 Acetaminophen (Tylenol) 650 mg PRN Q6HRS PRN PO MILD PAIN / TEMP > 100.3'F; Start 02/19/21 at 13:00; Stop 02/20/21 at 08:14; Status DC Aspirin (Ecotrin) 325 mg DAILYWBKFT PO Last administered on 02/20/21at 08:35; Start 02/20/21 at 08:00 Aspirin (Aspirin Rectal Supp) 300 mg PRN DAILY PRN IL IF UNABLE TO TAKE PO; Start 02/19/21 at 13:00 Clopidogrel Bisulfate (Plavix) 75 mg DAILYWBKFT PO Last administered on 02/20/21at 08:35; Start 02/20/21 at 08:00 Influenza Virus Vaccine Quadrival (Flulaval Quad 1343-5065 Syringe) 0.5 ml ONCE ONCE VAX IM ; Start 02/19/21 at 14:30; Stop 02/19/21 at 14:31; Status DC Acetaminophen (Tylenol) 650 mg PRN Q6HRS PRN PO MILD PAIN / TEMP > 100.3'F; Start 02/19/21 at 18:30 Ondansetron HCl (Zofran) 4 mg PRN Q4HRS PRN IVP NAUSEA/VOMITING; Start 02/19/21 at 18:30 Olanzapine (ZyPREXA ZYDIS) 5 mg PRN BID PRN PO ANXIETY / AGITATION; Start 02/19/21 at 18:30 Enoxaparin Sodium (Lovenox 40mg Syringe) 40 mg Q24H SQ Last administered on 04/22/20at 08:36; Start 02/20/21 at 09:00 Hydralazine HCl (Apresoline Inj) 10 mg PRN Q4HRS PRN IVP ELEVATED BP, SEE COMMENTS; Start 02/19/21 at 18:30 Albuterol Sulfate (Ventolin Neb Soln) 2.5 mg PRN Q6HRS PRN INH SHORTNESS OF BREATH; Start 02/19/21 at 18:30 Carvedilol (Coreg) 12.5 mg BIDWMEALS PO Last administered on 02/20/21at 08:36; Start 02/19/21 at 19:00 Isosorbide Mononitrate (Imdur) 30 mg DAILY PO Last administered on 02/20/21at 08:35; Start 02/20/21 at 09:00 Insulin Human Lispro (HumaLOG) 10 units TIDWMEALS SQ Last administered on 02/20/21at 08:40; Start 02/20/21 at 08:00 Insulin Glargine (Lantus Syringe) 40 unit QHS SQ Last administered on 02/19/21at 21:00; Start 02/19/21 at 21:00 Pantoprazole Sodium (Protonix) 40 mg DAILYAC PO Last administered on 02/20/21at 08:34; Start 02/20/21 at 07:30 Lisinopril (Prinivil) 10 mg DAILY PO Last administered on 02/20/21at 08:35; Start 02/20/21 at 09:00 Budesonide (Pulmicort) 0.5 mg RTBID NEB Last administered on 02/20/21at 07:14; Start 02/19/21 at 20:00 Albuterol/ Ipratropium (Duoneb) 3 ml RTQID NEB Last administered on 02/20/21at 11:06; Start 02/19/21 at 20:00 Insulin Human Lispro (HumaLOG) 0-9 UNITS TIDWMEALS SQ ; Start 02/20/21 at 08:00 Dextrose (Dextrose 50%-Water Syringe) 12.5 gm PRN Q15MIN PRN IV SEE COMMENTS; Start 02/19/21 at 18:30 Potassium Chloride (Klor-Con) 40 meq 1X ONCE PO ; Start 02/20/21 at 14:00; Stop 02/20/21 at 14:01; Status DC Active Scripts Active Zofran (Ondansetron Hcl) 4 Mg Tablet 4 Mg PO PRN TID PRN nausea/vomiting Reported Lantus Solostar (Insulin Glargine,Hum.rec.anlog) 100 Unit/1 Ml Insuln.pen 40 Unit SQ QHS Novolog Flexpen (Insulin Aspart) 100 Unit/1 Ml Insuln.pen 10 Unit SQ TIDBFRMEAL Cilostazol 100 Mg Tablet 100 Mg PO DAILY Protonix (Pantoprazole Sodium) 20 Mg Tablet.dr 20 Mg PO DAILY Ipratropium [place] 0.2 Mg/1 Ml Solution 0.5-3 Mg IH Proair Hfa Inhaler (Albuterol Sulfate) 8.5 Gm Hfa.aer.ad 2 Puff INH PRN Q6HRS PRN Clopidogrel (Clopidogrel Bisulfate) 75 Mg Tablet 1 Tab PO DAILY Isosorbide Mononitrate Er (Isosorbide Mononitrate) 30 Mg Tab.er.24h 1 Tab PO DAILY Nitrostat (Nitroglycerin) 0.4 Mg Tab.subl 1 Tab SL UD Aspirin 81 Mg Tab.chew 1 Tab PO DAILY Atorvastatin Calcium 20 Mg Tablet 1 Tab PO DAILY Carvedilol (Carvedilol) 12.5 Mg Tablet 1 Tab PO DAILY Ramipril 5 Mg Capsule 1 Cap PO DAILY Spiriva (Tiotropium [place]) 18 Mcg Cap.w.dev 18 Mcg IH Vitals/I & O Vital Sign - Last 24 Hours 02/19/21 02/19/21 02/19/21 02/19/21 14:42 19:40 20:00 20:36 Temp 98.3 98.3 Pulse 58 Resp 18 B/P (MAP) 137/64 (88) Pulse Ox 98 100 O2 Delivery Room Air Room Air Room Air Room Air 02/19/21 02/19/21 02/19/21 02/20/21 20:36 20:55 22:50 03:05 Temp 99.0 97.6 99.0 97.6 Pulse 58 65 73 Resp 18 18 B/P (MAP) 137/64 159/73 (101) 139/66 (90) Pulse Ox 100 97 96 O2 Delivery Room Air Room Air Room Air 02/20/21 02/20/21 02/20/21 02/20/21 07:15 07:26 07:55 08:35 Temp 97.6 97.6 Pulse 70 70 Resp 18 B/P (MAP) 132/62 (85) 132/62 Pulse Ox 97 97 O2 Delivery Room Air Room Air Room Air 02/20/21 02/20/21 02/20/21 02/20/21 08:35 08:36 10:32 11:07 Temp 97.3 97.3 Pulse 70 70 79 Resp 20 B/P (MAP) 132/62 132/62 129/63 (85) Pulse Ox 96 99 O2 Delivery Room Air Room Air 02/20/21 14:13 Temp 97.8 97.8 Pulse 74 Resp 18 B/P (MAP) 123/58 (79) Pulse Ox 97 O2 Delivery Room Air Intake and Output 02/19/21 02/19/21 02/20/21 15:00 23:00 07:00 Intake Total 200 ml 0 ml Balance 200 ml 0 ml Justicifation of Admission Dx: Justifications for Admission: Justification of Admission Dx: Yes Stroke - Ischemic: Stroke-Ischemic MICHELLE SHEEHAN MD Feb 20, 2021 14:25
[2021-02-20] MEDS ORDERED: ASPI325T11 PO (15:33)
[2021-02-20] MEDS ORDERED: ATOR40TA59 PO (15:33)
[2021-02-20] MEDS ORDERED: MECL50TA3 PO (15:45)
--- NOTE | 2021-02-20 16:07 | DS ---
DATE OF DISCHARGE: 02/20/2021 ADMITTING DIAGNOSIS: Subacute cerebellar infarct. DISCHARGE DIAGNOSES: Resolving subacute cerebellar infarct, stenosis of the left vertebral artery, diabetes, tobacco abuse, hyperlipidemia, coronary artery disease, history of bypass surgery. CONSULTS: Neurology. PROCEDURES: None. HOSPITAL COURSE: The patient is a pleasant middle-aged male who presented with dizziness. We did some imaging. He did have a cerebellar stroke. We admitted the patient, did some physical therapy and occupational therapy. We consulted Neurology. Neurology saw him earlier today. I also saw him this morning. He is doing well. We plan to discharge to home with p.r.n. Antivert. DISPOSITION: Home. ACTIVITY: As tolerated. DIET: Low sodium. DISCHARGE MEDICATIONS: Please see the MRAD. Aspirin 325 a day, atorvastatin 80 a day, albuterol, Coreg 1.25 b.i.d., cilostazol 100 daily, Plavix 75 a day, insulin 10 units with meals and NovoLog insulin at bedtime 40 units, Imdur 30 a day, nitro 0.4 p.r.n., Zofran 4 p.r.n., Protonix 40 a day, ramipril 5 a day, Spiriva, Antivert 25 mg q. 6 p.r.n. TOTAL TIME: 34 minutes. SYDNEE/NIKI DR: SYDNEE/hayder TID: [id number]
--- NOTE | 2021-02-20 16:38 | NUR ---
Patient discharge home with self care today via wheelchair, accompanied by this RN. Patient is stable, IV removed, and discharge paperwork given to patient. Patient verbalized understanding of followup and discharge instruction. Patient bought a walker here to use for ambulation as PT recommended.
== END 2021-02-20 16:42 | disposition home or self-care (01) | DRG 66 ==
LOC: ER 10:26 → 6 SOUTH 12:09
PROVIDERS: ADMIT Internal Medicine; ATTEND Internal Medicine
DX: I63.542 Cerebral infarction due to unspecified occlusion or stenosis of left cerebellar artery (principal); E11.40 Type 2 diabetes mellitus with diabetic neuropathy, unspecified; E78.00 Pure hypercholesterolemia, unspecified; E78.5 Hyperlipidemia, unspecified; F12.90 Cannabis use, unspecified, uncomplicated; F17.210 Nicotine dependence, cigarettes, uncomplicated; I11.0 Hypertensive heart disease with heart failure; I25.10 Atherosclerotic heart disease of native coronary artery without angina pectoris; I50.9 Heart failure, unspecified; J44.9 Chronic obstructive pulmonary disease, unspecified; K27.9 Peptic ulcer, site unspecified, unspecified as acute or chronic, without hemorrhage or perforation; R47.01 Aphasia; Z79.4 Long term (current) use of insulin; Z79.899 Other long term (current) drug therapy; Z82.3 Family history of stroke; Z82.49 Family history of ischemic heart disease and other diseases of the circulatory system; Z83.3 Family history of diabetes mellitus; Z86.73 Personal history of transient ischemic attack (TIA), and cerebral infarction without residual deficits; Z87.11 Personal history of peptic ulcer disease; Z87.19 Personal history of other diseases of the digestive system; Z95.1 Presence of aortocoronary bypass graft
CPT/HCPCS: 36415; 70450; 70551; 71045; 80048; 80053; 80061; 80307; 81001; 82607; 82962; 83036; 83690; 83735; 83880; 84443; 84484; 85025; 85610; 85730; 93005; 94640; 94760; 96361; 96374; 96375; J1650; J1815; J2765; J3490; J7030; 97116-GP; 97530-GO; 99285-25; G0378; J7626